=== PATIENT | male | born 1975 | race Caucasian/White ===

== ENCOUNTER 2016-12-06 15:43 | Emergency (ER) | payer MEDICAID ==
[2016-12-06 17:14] LABS: BASOPHILS 0.1 % (0-2); EOSINOPHILS 0.2 % (0-7); HEMATOCRIT 47.7 % (42.0-54.0); HEMOGLOBIN 16.9 g/dL (13.5-17.5); IMMATURE GRANULOCYTES 0.2 % (0-5); LYMPHOCYTES 15.1 % (15-50); MCH 29.7 pg (26.0-34.0); MCHC 35.4 g/dL (31.0-37.0); MCV 83.8 fL (80.0-100.0); MEAN PLATELET VOLUME 10.8 fL (7.4-10.4); MONOCYTES 9.5 % (2-11); NEUTROPHILS 74.9 % (40-80); RBC 5.69 10x6/uL (4.20-6.10); RDW 13.5 % (11.5-14.5); WBC 13.4 10x3/uL (4.8-10.8)
[2016-12-06 17:22] LABS: PLATELET COUNT 240 10x3/uL (130-400)
[2016-12-06 17:36] LABS: ANION GAP 12.2 mmol/L (8-16); CALCIUM 9.4 mg/dL (8.5-10.1); CARBON DIOXIDE 30.5 mmol/L (21.0-32.0); CREATININE - SERUM 1.6 mg/dL (0.6-1.3); POTASSIUM - SERUM 3.7 mmol/L (3.5-5.1)
== END 2016-12-06 19:59 | disposition home or self-care (01) ==
LOC: D.ER 15:43
PROVIDERS: Nurse Practitioner Acute Care
DX: K21.9 Gastro-esophageal reflux disease without esophagitis (principal); E11.9 Type 2 diabetes mellitus without complications

== ENCOUNTER 2020-07-14 19:12 | Emergency (ER) | payer MEDICARE, MEDICAID ==
[~2020-07-14] VITALS: Ht 172.7 cm; Wt 95.3 kg
[2020-07-14 19:32] VITALS: Ht 172.7 cm; Wt 95.3 kg
[2020-07-14 20:18] LABS: CALC OSMOLALITY 280 mosm/kg (275-300); CALCIUM 8.7 mg/dL (8.5-10.1); CHLORIDE - SERUM 95 mmol/L (98-107); CREATININE - SERUM 1.3 mg/dL (0.6-1.3); POTASSIUM - SERUM 4.2 mmol/L (3.5-5.1); SODIUM 134 mmol/L (136-145); UREA NITROGEN 20 mg/dL (7-18); eGFR NON AFRICAN AMERICAN 63 mL/min (90-120)
[2020-07-14 20:19] LABS: GLUCOSE 284 mg/dL (74-106)
[2020-07-14 20:38] LABS: ALBUMIN 3.3 g/dL (3.4-5.0); ALKALINE PHOSPHATASE 213 U/L (30-120); AMYLASE - SERUM 139 U/L (25-115); CREATINE KINASE 60 UL (21-232); LIPASE 75 U/L (73-393); PRO BNP 141 pg/mL (0-125); PROTEIN - SERUM 8.2 g/dL (6.4-8.2)
[2020-07-14 20:43] LABS: BASOPHILS 1.6 % (0-2); EOSINOPHILS 0 % (0-7); HEMATOCRIT 49.1 % (42.0-54.0); HEMOGLOBIN 16.6 g/dL (13.5-17.5); IMMATURE GRANULOCYTES 0.2 % (0-5); LYMPHOCYTE ABS# 1.27 10x3/uL (1.32-3.57); LYMPHOCYTES 22.5 % (15-50); MCH 28.7 pg (26.0-34.0); MCHC 33.8 g/dL (31.0-37.0); MCV 84.9 fL (80.0-100.0); MEAN PLATELET VOLUME 11.2 fL (7.4-10.4); MONOCYTES 7.1 % (2-11); NEUTROPHIL ABS# 3.88 10x3/uL (1.78-5.38); NEUTROPHILS 68.6 % (40-80); RBC 5.78 10x6/uL (4.20-6.10); RDW 14.8 % (11.5-14.5); WBC 5.7 10x3/uL (4.8-10.8)
[2020-07-14 20:44] LABS: PLATELET COUNT 141 10x3/uL (130-400)
[2020-07-14 20:52] LABS: ALT (SGPT) 4682 U/L (10-68); TROPONIN-I < 0.017 ng/mL (0.000-0.060)
[2020-07-14 21:24] LABS: INR 1.62 (0.85-1.17); PROTIME 17.8 SECONDS (11.6-15.0)
[2020-07-14 23:26] LABS: BILIRUBIN NEGATIVE (NEGATIVE); KETONE MODERATE mg/dL (NEGATIVE); NITRITE NEGATIVE (NEGATIVE); UROBILINOGEN NORMAL mg/dL (< 2)
[2020-07-14 23:28] LABS: BACTERIA MODERATE HPF (NONE SEEN); SQUAMOUS EPITHELIAL 0-5 HPF (0-4); UDS - AMPHET POSITIVE QUAL (NEGATIVE); UDS - BARB NEGATIVE QUAL (NEGATIVE); UDS - BENZO NEGATIVE QUAL (NEGATIVE); UDS - COCAINE NEGATIVE QUAL (NEGATIVE); UDS - OPIATE NEGATIVE QUAL (NEGATIVE); UDS - PCP NEGATIVE QUAL (NEGATIVE); UDS - THC POSITIVE QUAL (NEGATIVE)
[2020-07-15 05:49] VITALS: BP 157/80
[2020-07-15] MEDS ORDERED: ZOFRAN ODT4 MG/UDTAB PO (06:42)
== END 2020-07-15 07:30 | disposition home or self-care (01) ==
LOC: D.ER 19:12
PROVIDERS: Family Medicine
DX: E11.9 Type 2 diabetes mellitus without complications (principal); K75.9 Inflammatory liver disease, unspecified; R11.2 Nausea with vomiting, unspecified; R10.9 Unspecified abdominal pain